=== PATIENT | female | born 1955 | race Asian ===

== ENCOUNTER 2018-01-16 00:31 | Emergency (ER) | payer MEDICAID ==
[~2018-01-16] VITALS: Ht 149.9 cm; Wt 44.0 kg
[~2018-01-16 00:31] MED LIST: ASPI-556 PO; INSLAN SQ; LISI-662 PO; METF500T4 PO; RISP1SOL10 PO; SIMV-260 PO
[2018-01-16 00:48] LABS: BASOPHILS % (AUTO) 0.4 % (0.0-2.0); EOSINOPHILS % (AUTO) 0.1 % (1.0-6.0); HEMATOCRIT 45.7 % (36-46); HEMOGLOBIN 15.6 g/dL (12.0-16.0); LYMPHOCYTES # (AUTO) 4.9 K/uL (1.0-4.8); LYMPHOCYTES % (AUTO) 33.4 % (22.0-44.0); MEAN CORPUSCULAR HEMOGLOBIN 31.5 pg (26.0-34.0); MEAN CORPUSCULAR VOLUME 93 fL (80-100); MONOCYTES # (AUTO) 0.7 K/uL (0.1-1.0); MONOCYTES % (AUTO) 4.9 % (2.0-9.0); NEUTROPHILS # (AUTO) 8.9 K/uL (1.8-7.7); NEUTROPHILS % (AUTO) 61.2 % (40.0-70.0); PLATELET COUNT (AUTO) 344 K/uL (150-450); RED BLOOD CELL COUNT(AUTO) 4.95 MIL/uL (4.00-5.20); RED CELL DISTRIBUTION WIDTH 13.6 % (11.5-14.5)
[2018-01-16 00:58] LABS: PROTHROMBIN TIME 10.2 SEC (9.4-11.6)
[2018-01-16 01:18] LABS: ALANINE AMINOTRANSFERASE 23 U/L (12-78); ALBUMIN 3.9 g/dL (3.4-5.0); ALKALINE PHOSPHATASE 182 U/L (46-116); ANION GAP 14 mmol/L (8-16); ASPARTATE AMINOTRANSFERASE 17 U/L (15-37); BILIRUBIN,TOTAL 0.2 mg/dL (0.1-1.0); CALCIUM, TOTAL 9.5 mg/dL (8.8-10.5); CARBON DIOXIDE 24 mmol/L (22-29); CHLORIDE 100 mmol/L (98-107); CREATINE KINASE MB 1.1 ng/mL (0-5); CREATINE KINASE, TOTAL 84 U/L (26-192); CREATININE 0.85 mg/dL (0.60-1.30); GLOMERULAR FILTR. RATE CALC > 60 mL/min (>60); POTASSIUM 3.4 mmol/L (3.5-5.1); SODIUM SERUM 138 mmol/L (136-145); TOTAL PROTEIN, SERUM 8.3 g/dL (6.4-8.2); UREA NITROGEN, BLOOD 15 mg/dL (7-18)
[2018-01-16] MEDS ORDERED: IOVERSOL 320 MG/ML 100 ML VIAL ONE (01:18)
[2018-01-16 01:20] LABS: GLUCOSE,RANDOM 450 mg/dL (70-110)
[2018-01-16] MEDS ORDERED: ALTEPLASE PER STROKE PROTOCOL CLINICAL ONE (01:30)
[2018-01-16] MEDS ORDERED: INSULIN REGULAR, HUMAN 100 UNITS/ML IVP ONE (01:30)
[2018-01-16] MEDS ORDERED: ALTEPLASE IV ONE ×4 (01:30→01:45)
[2018-01-16] MEDS ORDERED: SODIUM CHLORIDE 0.9% 1,000 ML IV ONE (01:30)
[2018-01-16] MEDS ORDERED: WATER FOR INJECTION STERILE IV ONE ×4 (01:30→01:45)
[2018-01-16 02:16] VITALS: BP 157/107
== END 2018-01-16 02:37 | disposition short-term general hospital (02) ==
LOC: EMS 00:32
DX: I63.9 Cerebral infarction, unspecified (principal); E11.9 Type 2 diabetes mellitus without complications; I10 Essential (primary) hypertension; F17.210 Nicotine dependence, cigarettes, uncomplicated; F15.90 Other stimulant use, unspecified, uncomplicated; Z79.4 Long term (current) use of insulin; Z79.82 Long term (current) use of aspirin
CPT/HCPCS: 36415; 37195; 70450; 70496; 71045; 80053; 82550; 82553; 82962; 84484; 85025; 85610; 85730; 93005; 96360; 96361; 96374; 99291; J1815; J2997 ×2; J7030; Q9967